=== PATIENT | male | born 1980 | race African-American/Black ===

== ENCOUNTER 2016-12-20 18:27 | Emergency (ER) | payer MEDICAID ==
[~2016-12-20] VITALS: Ht 188 cm; Wt 113.0 kg
[~2016-12-20 18:27] MED LIST: ALBU6.7H2; ATEN100T PO; HYDR-523 PO
[2016-12-20] MEDS ORDERED: ACETAMINOPHEN WITH CODEINE 300/30MG TABLET PO ONE (19:30)
[2016-12-20] MEDS ORDERED: CLONIDINE 0.1MG TABLET PO ONE (19:30)
[2016-12-20 22:27] VITALS: BP 133/84
== END 2016-12-20 22:31 | disposition home or self-care (01) ==
LOC: ER 22:17
DX: S09.90XA Unspecified injury of head, initial encounter (principal); I16.0 Hypertensive urgency; G43.909 Migraine, unspecified, not intractable, without status migrainosus; J45.909 Unspecified asthma, uncomplicated; I10 Essential (primary) hypertension; Z88.0 Allergy status to penicillin; Z79.899 Other long term (current) drug therapy; W19.XXXA Unspecified fall, initial encounter; Y93.89 Activity, other specified; Y92.89 Other specified places as the place of occurrence of the external cause; Y99.8 Other external cause status
CPT/HCPCS: 70450; 99291; Z7610

== ENCOUNTER 2017-01-18 10:59 | Emergency (ER) | payer MEDICAID ==
[~2017-01-18] VITALS: Ht 188 cm; Wt 130.0 kg
[2017-01-18 11:07] VITALS: BP 161/101
[2017-01-18] MEDS ORDERED: HYDROCODONE/APAP 7.5/325MG 1 TAB TABLET PO ONE (12:15)
== END 2017-01-18 13:55 | disposition left against medical advice (07) ==
LOC: ER 13:54
DX: M54.5 Low back pain (principal); J45.909 Unspecified asthma, uncomplicated; Z88.0 Allergy status to penicillin; H92.01 Otalgia, right ear
CPT/HCPCS: 99282; Z7610

== ENCOUNTER 2017-06-26 09:53 | Emergency (ER) | payer MEDICAID, MEDICARE ==
[~2017-06-26] VITALS: Ht 185.4 cm; Wt 136.0 kg
[2017-06-26 11:52] LABS: BASOPHILS % 0.8 % (0.0-2.0); EOSINOPHILS % 4.3 % (0.0-5.0); HEMOGLOBIN. 14.9 g/dL (14.0-18.0); LYMPHOCYTES % 25.9 % (20.0-50.0); MEAN CORPUSCULAR HEMOGLOBIN 30.5 pg (28.0-32.0); MEAN CORPUSCULAR VOLUME 90.2 fL (80.0-94.0); MEAN PLATELET VOLUME 7.2 fl (7.4-10.4); MONOCYTES % 7.5 % (2.0-8.0); NEUTROPHILS % 61.5 % (40.0-76.0); PLATELET 287 x1000/uL (130-400); RED BLOOD CELL COUNT 4.88 mill/uL (4.7-6.1); RED CELL DISTRIBUTION WIDTH 14.3 % (11.6-14.6)
[2017-06-26 11:59] LABS: PARTIAL THROMBOPLASTIN TIME 27.3 sec (23.4-31.0); PROTHROMBIN TIME 10.6 sec (9.4-11.6)
[2017-06-26 12:11] LABS: CARBON DIOXIDE 34 mEq/L (21-32); CHLORIDE 102 mEq/L (98-107); CREATINE KINASE 486 IU/L (39-308); TROPONIN I < 0.02 ng/mL (0.00-0.04)
[2017-06-26 12:13] LABS: CREATINE KINASE MB FRACTION 1.2 ng/mL (0.5-3.6)
[2017-06-26] MEDS ORDERED: SODIUM CHLORIDE 0.9% 1,000 ML IV ONE (13:24)
[2017-06-26] MEDS ORDERED: KETOROLAC 30MG/ML VIAL IV STA (13:24)
[2017-06-26 15:50] VITALS: BP 142/76
== END 2017-06-26 15:00 | disposition home or self-care (01) ==
LOC: ER 12:53
DX: S60.221A Contusion of right hand, initial encounter (principal); I10 Essential (primary) hypertension; R07.9 Chest pain, unspecified; J45.909 Unspecified asthma, uncomplicated; Z88.0 Allergy status to penicillin; X58.XXXA Exposure to other specified factors, initial encounter; Y93.67 Activity, basketball; Y92.89 Other specified places as the place of occurrence of the external cause; Y99.8 Other external cause status
CPT/HCPCS: 36415; 71010; 73130; 80053; 82550; 82553; 83690; 83880; 84443; 84484; 85025; 85610; 85730; 93005; 96360; 99285; J7030